=== PATIENT | male | born 2000 | race Caucasian/White ===

== ENCOUNTER 2022-09-30 17:26 | Emergency (ER) | payer OTHER, SELFPAY ==
[2022-09-30 17:27] VITALS: BP 139/87; PULSE 86; RESP 17; TEMP 36.8; O2SAT 100; BMI 27.0
--- NOTE | 2022-09-30 17:47 | CT_ITS ---
STUDY: CT ABDOMEN AND PELVIS WITH CONTRAST REASON FOR EXAM: Male, 21 years old. abdominal pain -- IV PO Contrast RADIATION DOSAGE (If Supplied By Facility): CTDIvol = ( 16.66 ) mGy, DLP = ( 754.24 ) mGycm TECHNIQUE: Transaxial images were obtained from the dome of the diaphragm to the symphysis pubis without oral contrast. Oral and amp; IV and amp; 100mL Isovue-300 was administered. Sagittal and coronal images were reconstructed. Individualized dose optimization techniques were used for this CT. COMPARISON: None. FINDINGS: The visualized lung bases are unremarkable. The visualized portions of the heart are within normal limits. Normal liver. Normal gallbladder and extrahepatic biliary system. Normal spleen. Normal pancreas. Normal bilateral adrenal glands. Normal right kidney. Normal left kidney. Normal visualized stomach. Normal small intestine. Normal colon. The appendix is visualized and appears normal. Normal abdominal aorta. Normal inferior vena cava. Normal retroperitoneum. Normal urinary bladder. Normal abdominal wall. Normal osseous structures. CT/Abdomen/Pelvis WITH Contrast IMPRESSION: Normal enhanced CT of the abdomen and pelvis. Electronically Signed: Armond Miranda MD at 20:05 EDT ,
[2022-09-30] MEDS: Ondansetron 4 MG/2 ML Vial IV ×2 (17:49→22:14)
--- NOTE | 2022-09-30 17:49 | EDS_ITS ---
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 Today at noon he ate chicken and had sudden onset periumbilical pain, 2 episodes of vomiting, and a few episodes of loose stools. The pain comes in waves. No history of similar symptoms. He takes no medications, does not smoke, states he occasionally drinks alcohol and only had a small amount earlier this week. PFSH <VICKI Cornelius - Last Filed: 09/30/22 21:28> PFSH Medical History no medical history Home Medications acetaminophen 500 mg tablet (Tylenol Extra Strength) 1,000 mg PO Q6H PRN fever or pain 5 days #40 tabs 09/30/22 [Rx Last Taken Unknown] ondansetron 4 mg disintegrating tablet 4 mg PO Q8H PRN PRN Nausea #10 tabs 09/30/22 [Rx Last Taken Unknown] Allergy/AdvReac Type Severity Reaction Status Date / Time Penicillins [PCN] Allergy Rash Verified 12/25/16 07:53 Surgical History no surgical history Social History Smoking Status: Never smoker ROS <VICKI Cornelius - Last Filed: 09/30/22 21:28> ROS ED ROS Narrative Constitutional: Negative for fever, chills, malaise. CVS: Negative for chest pain. Respiratory: Negative for shortness of breath. GI: Positive for abdominal pain, nausea, vomiting, diarrhea. Negative for melena, hematochezia. : Negative for dysuria. Neuro: Negative for headache. EXAM <VICKI Cornelius Last Filed: 09/30/22 21:28> Physical Exam Narrative Exam Narrative: CONST: Patient sitting in bed appears uncomfortable. EYES: Normal inspection. NECK: Normal inspection. RESP: No respiratory distress, CTAB. CVS: Regular rate and rhythm, no murmur, no gallop. ABD: Soft with periumbilical tenderness, no guarding or rebound, nondistended, no hepatosplenomegaly. SKIN: Color normal, no rash, warm, dry, intact. EXTREMITIES: Normal appearance, no pedal edema. NEURO: Oriented x4. PSYCH: Normal affect. Const Vital Signs: 09/30/22 17:27 09/30/22 19:27 09/30/22 21:11 Temperature 98.2 F Temperature Source Temporal Pulse Rate 86 76 62 Respiratory Rate 17 16 18 Blood Pressure 139/87 H 118/73 125/60 H Blood Pressure Mean 104 88 81 Pulse Ox 100 99 98 Oxygen Delivery Method Room Air Room Air Room Air 09/30/22 22:11 09/30/22 22:19 Temperature Temperature Source Pulse Rate 59 L 78 Respiratory Rate 16 18 Blood Pressure 138/77 H 142/76 H Blood Pressure Mean 97 Pulse Ox 97 100 Oxygen Delivery Method Room Air <Dr. Henri Ruvalcaba DO - Last Filed: 09/30/22 22:40> Physical Exam Const Vital Signs: 09/30/22 17:27 09/30/22 19:27 09/30/22 21:11 Temperature 98.2 F Temperature Source Temporal Pulse Rate 86 76 62 Respiratory Rate 17 16 18 Blood Pressure 139/87 H 118/73 125/60 H Blood Pressure Mean 104 88 81 Pulse Ox 100 99 98 Oxygen Delivery Method Room Air Room Air Room Air 09/30/22 22:11 09/30/22 22:19 Temperature Temperature Source Pulse Rate 59 L 78 Respiratory Rate 16 18 Blood Pressure 138/77 H 142/76 H Blood Pressure Mean 97 Pulse Ox 97 100 Oxygen Delivery Method Room Air [facility] <VICKI Cornelius - Last Filed: 09/30/22 21:28> [facility] Narrative Medical decision making narrative: History gathered from: Patient and significant other Patient having periumbilical abdominal pain, vomiting, diarrhea. He appears uncomfortable but nontoxic. Afebrile with normal vital signs. Exam remarkable for periumbilical tenderness but no guarding or rebound. I am concerned that early appendicitis needs ruled out. Labs and CT with p.o. and IV contrast will be obtained. CBC shows normal white count at 9.8. BMP only remarkable for mild hypokalemia at 3.1. Glucose 119 with normal anion gap. Lipase 23. CT shows no acute findings and normal visualized appendix. Patient was reassessed and although he does feel better he still has pain with palpation of the periumbilical and right lower quadrant area. I consulted general surgery to evaluate for appendicitis. Dr. Canales evaluated the patient in the ER and does not think this is appendicitis. Patient will be discharged home with Tylenol and Zofran but was told to return for any new or worsening symptoms. We thoroughly discussed it is possible he has early appendicitis. Patient was discharged in stable condition. Differential: Viral gastroenteritis, cholecystitis, appendicitis, diverticulitis Lab Data Attestation: I reviewed the patient's lab results. Labs: Laboratory Results - last 24 hr 09/30/22 09/30/22 09/30/22 18:40 18:40 20:56 WBC 9.8 RBC 5.56 Hgb 16.4 Hct 48.3 MCV 86.9 MCH 29.5 MCHC 34.0 RDW Std Deviation 37.8 RDW Coeff of Rachna 11.9 Plt Count 215 MPV 9.1 Immature Gran % (Auto) 0.300 Neut % (Auto) 84.4 H Lymph % (Auto) 12.0 L [place] % (Auto) 2.9 Eos % (Auto) 0.2 Baso % (Auto) 0.2 Absolute Neuts (auto) 8.2 H Absolute Lymphs (auto) 1.17 Nucleated RBC % 0 Sodium 139 Potassium 3.1 L Chloride 108 H Carbon Dioxide 23.0 Anion Gap 8 BUN 18 Creatinine 1.12 Estim Creat Clear Calc 114.51 Est GFR (MDRD) Af Amer 106 Est GFR (MDRD) Non-Af 87 BUN/Creatinine Ratio 16.1 Glucose 119 H Calcium 9.6 Total Bilirubin 0.40 AST 12 L ALT 21 Alkaline Phosphatase 87 Total Protein 7.6 Albumin 4.2 Globulin 3.4 Albumin/Globulin Ratio 1.2 Lipase 23 Urine Color Yellow Urine Clarity Sl. Cloudy Urine pH 7.0 Ur Specific [place] 1.010 Urine Protein 15 H Urine Glucose (UA) Normal Urine Ketones 150 A* Urine Occult Blood Negative Urine Nitrite Negative Urine Bilirubin Negative Urine Urobilinogen Normal Ur Leukocyte Esterase Negative Urine RBC 0 SEEN Urine WBC 0 SEEN Ur Squamous Epith Cells 0 SEEN Amorphous Sediment 2+ Urine Bacteria 0 SEEN Urine Mucus 0 SEEN Radiography Diagnostic Testing: Clinical Impression(s) from Imaging Studies Abdomen/Pelvis CT 09/30/22 17:47 IMPRESSION: Normal enhanced CT of the abdomen and pelvis. Electronically Signed: Armond Miranda MD at 20:05 EDT , <Dr. Henri Ruvalcaba, DO - Last Filed: 09/30/22 22:40> [facility] Narrative Medical decision making narrative: History gathered from: Patient and significant other Patient having periumbilical abdominal pain, vomiting, diarrhea. He appears uncomfortable but nontoxic. Afebrile with normal vital signs. Exam remarkable for periumbilical tenderness but no guarding or rebound. I am concerned that early appendicitis needs ruled out. Labs and CT with p.o. and IV contrast will be obtained. CBC shows normal white count at 9.8. BMP only remarkable for mild hypokalemia at 3.1. Glucose 119 with normal anion gap. Lipase 23. CT shows no acute findings and normal visualized appendix. Patient was reassessed and although he does feel better he still has pain with palpation of the periumbilical and right lower quadrant area. I consulted general surgery to evaluate for appendicitis. Dr. Canales evaluated the patient in the ER and does not think this is appendicitis. Patient will be discharged home with Tylenol and Zofran but was told to return for any new or worsening symptoms. We thoroughly discussed it is possible he has early appendicitis. Patient was discharged in stable condition. Differential: Viral gastroenteritis, cholecystitis, appendicitis, diverticulitis Attending note: Patient seen and evaluated with specialist managers. I perform my own [id number] evaluation. I agree with the plan of work-up. Abdominal pain diarrhea since yesterday symptoms were better this morning, however returned. Started mid abdomen. Denies fevers. Denies abdominal surgeries. Exam alert not toxic however uncomfortable. Tender mid abdomen and slightly right lower quadrant. Patient treated for his pain symptoms fluids labs all normal except for some 0.1. Urine with negative. A contrast CT scan reviewed and read by radiology with a normal appendix with no other acute findings. Reevaluated by specialist managers still had discomfort, discussed with on-call surgeon Dr. Canales who evaluated the patient in the ED does not feel his acute appendicitis at this time. He recommended additional fluids for the patient. Patient given prescription for Zofran to use Tylenol with strict return precautions. Lab Data Labs: Laboratory Results - last 24 hr 09/30/22 09/30/22 09/30/22 18:40 18:40 20:56 WBC 9.8 RBC 5.56 Hgb 16.4 Hct 48.3 MCV 86.9 MCH 29.5 MCHC 34.0 RDW Std Deviation 37.8 RDW Coeff of Rachna 11.9 Plt Count 215 MPV 9.1 Immature Gran % (Auto) 0.300 Neut % (Auto) 84.4 H Lymph % (Auto) 12.0 L [place] % (Auto) 2.9 Eos % (Auto) 0.2 Baso % (Auto) 0.2 Absolute Neuts (auto) 8.2 H Absolute Lymphs (auto) 1.17 Nucleated RBC % 0 Sodium 139 Potassium 3.1 L Chloride 108 H Carbon Dioxide 23.0 Anion Gap 8 BUN 18 Creatinine 1.12 Estim Creat Clear Calc 114.51 Est GFR (MDRD) Af Amer 106 Est GFR (MDRD) Non-Af 87 BUN/Creatinine Ratio 16.1 Glucose 119 H Calcium 9.6 Total Bilirubin 0.40 AST 12 L ALT 21 Alkaline Phosphatase 87 Total Protein 7.6 Albumin 4.2 Globulin 3.4 Albumin/Globulin Ratio 1.2 Lipase 23 Urine Color Yellow Urine Clarity Sl. Cloudy Urine pH 7.0 Ur Specific [place] 1.010 Urine Protein 15 H Urine Glucose (UA) Normal Urine Ketones 150 A* Urine Occult Blood Negative Urine Nitrite Negative Urine Bilirubin Negative Urine Urobilinogen Normal Ur Leukocyte Esterase Negative Urine RBC 0 SEEN Urine WBC 0 SEEN Ur Squamous Epith Cells 0 SEEN Amorphous Sediment 2+ Urine Bacteria 0 SEEN Urine Mucus 0 SEEN Radiography Diagnostic Testing: Clinical Impression(s) from Imaging Studies Abdomen/Pelvis CT 09/30/22 17:47 IMPRESSION: Normal enhanced CT of the abdomen and pelvis. Electronically Signed: Armond Miranda MD at 20:05 EDT Reading Location ID and State: [facility] / [place] , Service support , Discharge Plan Triage Chief Complaint: Abd Pain ED Midlevel Provider: Viktoria Wellington ED Provider: Henri Ruvalcaba Dx/Rx/DC Orders Clinical Impression: Abdominal pain, Acute hypokalemia Instructions: Abdominal Pain Prescriptions: New ondansetron 4 mg tablet,disintegrating 4 mg PO Q8H PRN PRN (Reason: Nausea) Qty: 10 0RF acetaminophen [Tylenol Extra Strength] 500 mg tablet 1,000 mg PO Q6H PRN (Reason: fever or pain) 5 Days Qty: 40 0RF Primary Care Provider: Pravin Sarmiento Referrals: Pravin Sarmiento MD [Primary Care Provider] - Activity Restrictions/Additional Instructions: Your blood work and CAT scan look normal today. If you worsen come back to the emergency room. Is possible that he could have early appendicitis so it is very important to come back if you feel increased pain or worsening symptoms. Disposition Disposition: Home, Self Care Discharge Date/Time: 09/30/22 22:24
[2022-09-30] MEDS: Morphine 4 MG/ML Syringe IV ×2 (17:50→18:35)
[2022-09-30] MEDS: 0.9% Normal Saline 1,000 ML 999 ML IV ×2 (17:50→21:10)
[2022-09-30 18:48] LABS: Absolute Lymphocyte Count 1.17 X10^3/uL (0.83-4.51); Absolute Neutrophil Count 8.2 X10^3/uL (2.0-7.7); Basophil# 0.02 X10^3/uL; Basophil% 0.2 % (0-1); Eosinophil# 0.02 X10^3/uL; Eosinophils% 0.2 % (0-5); Hematocrit 48.3 % (40-54); Hemoglobin 16.4 g/dL (13.0-16.5); Lymphocyte # 1.17 X10^3/ul (0.83-4.51); Mean Corpuscular Hgb 29.5 pg (27.0-32.0); Mean Corpuscular Volume 86.9 fL (80-94); Mean Platelet Vol. 9.1 fl (6.2-12.0); Monocyte# 0.28 X10^3/uL; Monocyte% 2.9 % (0-10); NRBC Flagged by Analyzer 0 % (0-5); Neutrophil # 8.23 X10^3/uL (2.7-7.7); Neutrophil % 84.4 % (47-70); Platelet Count 215 K/mm3 (150-450); RBC Distribution Width CV 11.9 % (11.6-14.6); RBC Distribution Width SD 37.8 fl (35.1-43.9); Red Blood Count 5.56 M/mm3 (4.6-6.2); White Blood Count 9.8 K/mm3 (4.4-11.0)
[2022-09-30 19:17] LABS: ALB/GLOB Ratio 1.2 RATIO (0.9-2.4); AST(SGOT) 12 U/L (15-37); Alanine Aminotransfer ALT/SGPT 21 U/L (16-61); Albumin, Serum 4.2 g/dL (3.2-5.0); Alkaline Phosphatase 87 U/L (45-117); Anion Gap 8 (5-15); BUN 18 mg/dL (7-18); BUN/Creat Ratio 16.1 RATIO (10-20); Calcium,Total 9.6 mg/dL (8.5-10.1); Chloride 108 mmol/L (98-107); Creatinine, Serum 1.12 mg/dL (0.70-1.30); EST Glomerular Filtration Rate 87 mL/min (>60); Est Glom Filt Rate - Afr Amer 106 mL/min (>60); Estimated Creatinine Clearance 114.51 ml/min; Globulin 3.4 g/dL (2.2-4.2); Glucose 119 mg/dL (74-106); Lipase 23 U/L (13-75); Potassium 3.1 mmol/L (3.5-5.1); Protein, Total 7.6 g/dL (6.4-8.2); Sodium Level 139 mmol/L (136-145)
[2022-09-30 19:27] VITALS: BP 118/73; PULSE 76; RESP 16; O2SAT 99
[2022-09-30] MEDS: Potassium Chloride Oral Tablet 20 MEQ 40 MEQ PO (20:53)
[2022-09-30 20:59] LABS: Bacteria 0 SEEN /hpf (None Seen); Mucous, Urine 0 SEEN /hpf (<or=2+); Red Blood Cells-Urine 0 SEEN /hpf (0-5); Squamous Epithelial Cells - UA 0 SEEN /hpf (0-5); White Blood Cells 0 SEEN /hpf (0-5)
[2022-09-30 21:01] LABS: Color, Urine Yellow (Yellow); Glucose, Dipstick Normal (Normal); Leukocyte Esterase-Dipstick Negative /ul (Negative); Nitrite-Dipstick Negative (Negative); Occult Blood-Urine Negative /ul (Negative); Protein-Dipstick 15 mg/dl (Negative); Urine Bilirubin Dipstick Negative (Negative); Urine Clarity Sl. Cloudy (Clear); Urine Urobilinogen Normal (Normal)
[2022-09-30 21:04] LABS: Ketone-Dipstick 150 mg/dl (Negative)
--- NOTE | 2022-09-30 21:07 | CON.PCM.SX_ITS ---
Assessment & Plan Assessment/Plan (1) Abdominal pain: PLAN: I do not believe his abdominal pain is appendix related I think he probably does have gastroenteritis viral more than likely related. He probably would benefit from more IV hydration. His urinalysis is not back yet and that will need to be checked prior to his being discharged. I have instructed him that if his pain or to come back or if it will localized into the right lower quadrant he should come back to the emergency department and get reevaluated. HPI Consult Data Date of Consult: 09/30/22 HPI Narrative HPI Narrative: DAVE BARLOW, is a 21-year-old [facility] male with no past medical history had abdominal pain and a few episodes of diarrhea yesterday.? Today at noon he ate chicken and had sudden onset periumbilical pain, 2 episodes of vomiting, and a few episodes of loose stools.? The pain comes in waves.? No history of similar symptoms.? He takes no medications, does not smoke, states he occasionally dri nks alcohol and only had a small amount earlier this week. In the emergency department he had a normal white count CT scan which was read as normal with visualization of the appendix no signs of inflammation of the intestines. He is still complaining of some centralized abdominal pain but feels slightly better. [facility] Medical History no medical history Home Medications No Known/Unobtainable [No Known Home Medications] 12/25/16 [History Last Taken Unknown] Allergy/AdvReac Type Severity Reaction Status Date / Time Penicillins [PCN] Allergy Rash Verified 12/25/16 07:53 Surgical History no surgical history Social History Smoking Status: Never smoker ROS Constitutional Constitutional: Denies chills or fever(s) Cardiovascular Cardiovascular: Denies chest pain at rest Respiratory/Chest Respiratory/Chest: Denies shortness of breath at rest Gastrointestinal Gastrointestinal: Reports abdominal pain, diarrhea, nausea and vomiting Genitourinary Genitourinary: Denies dysuria Physical Exam Const alert, oriented x3 and no apparent distress HEENT normocephalic and head/scalp atraumatic Eyes PERRL and EOMs intact bilaterally Resp clear to auscultation bilaterally GI soft to palpation GI Narrative: There is no rebound guarding or peritoneal signs identified. He has absolutely no tenderness in the right lower quadrant to deep palpation. Lab / Micro Data Result Diagrams: 09/30/22 18:40 09/30/22 18:40 Labs: Laboratory Results - last 24 hr 09/30/22 18:40: WBC 9.8, RBC 5.56, Hgb 16.4, Hct 48.3, MCV 86.9, MCH 29.5, MCHC 34.0, RDW Std Deviation 37.8, RDW Coeff of Rachna 11.9, Plt Count 215, MPV 9.1, Immature Gran % (Auto) 0.300, Neut % (Auto) 84.4 H, Lymph % (Auto) 12.0 L, [place] % (Auto) 2.9, Eos % (Auto) 0.2, Baso % (Auto) 0.2, Absolute Neuts (auto) 8.2 H, Absolute Lymphs (auto) 1.17, Nucleated RBC % 0 09/30/22 18:40: Sodium 139, Potassium 3.1 L, Chloride 108 H, Carbon Dioxide 23.0, Anion Gap 8, BUN 18, Creatinine 1.12, Estim Creat Clear Calc 114.51, Est GFR (MDRD) Af Amer 106, Est GFR (MDRD) Non-Af 87, BUN/Creatinine Ratio 16.1, Glucose 119 H, Calcium 9.6, Total Bilirubin 0.40, AST 12 L, ALT 21, Alkaline Phosphatase 87, Total Protein 7.6, Albumin 4.2, Globulin 3.4, Albumin/Globulin Ratio 1.2, Lipase 23 09/30/22 20:56: Urine Color Yellow, Urine Clarity Sl. Cloudy, Urine pH 7.0, Ur Specific [employer] 1.010, Urine Protein 15 H, Urine Glucose (UA) Normal, Urine Ketones 150 A*, Urine Occult Blood Negative, Urine Nitrite Negative, Urine Bilirubin Negative, Urine Urobilinogen Normal, Ur Leukocyte Esterase Negative Radiology Impression Abdomen/Pelvis CT 09/30/22 17:47 IMPRESSION: Normal enhanced CT of the abdomen and pelvis. Electronically Signed: Armond Miranda MD at 20:05 EDT ,
[2022-09-30 21:11] VITALS: BP 125/60; PULSE 62; RESP 18; O2SAT 98
[2022-09-30 21:26] LABS: Amorphous Sediment 2+
[2022-09-30 22:11] VITALS: BP 138/77; PULSE 59; RESP 16; O2SAT 97
[2022-09-30 22:19] VITALS: BP 142/76; PULSE 78; RESP 18; O2SAT 100
== END 2022-09-30 22:24 | disposition home or self-care (01) ==
PROVIDERS: Physician Assistant; Emergency Provider Emergency Medicine; PCP Pediatrics; Visit Provider Emergency Medicine
DX: R10.33 Periumbilical pain (principal); E87.6 Hypokalemia
CPT/HCPCS: 74177; 80053; 81001; 83690; 85025; 96374; 96375; 96376; 99284; J7030; Q9967; A4216; J2405

== ENCOUNTER 2022-10-02 05:29 | Emergency (ER) | payer OTHER, SELFPAY ==
[2022-10-02 05:30] VITALS: BP 141/87; PULSE 68; RESP 16; TEMP 37; O2SAT 97; BMI 26.4
[2022-10-02 06:29] LABS: Absolute Lymphocyte Count 1.06 X10^3/uL (0.83-4.51); Absolute Neutrophil Count 4.9 X10^3/uL (2.0-7.7); Basophil# 0.02 X10^3/uL; Basophil% 0.3 % (0-1); Eosinophil# 0.06 X10^3/uL; Hematocrit 47.3 % (40-54); Hemoglobin 16.1 g/dL (13.0-16.5); Lymphocyte # 1.06 X10^3/ul (0.83-4.51); Lymphocyte % 16.9 % (19-41); Mean Corpuscular Hgb 29.8 pg (27.0-32.0); Mean Corpuscular Volume 87.4 fL (80-94); Mean Platelet Vol. 9.4 fl (6.2-12.0); Monocyte# 0.24 X10^3/uL; Monocyte% 3.8 % (0-10); NRBC Flagged by Analyzer 0 % (0-5); Neutrophil # 4.86 X10^3/uL (2.7-7.7); Neutrophil % 77.7 % (47-70); POSITIVE COUNT YES; Platelet Count 191 K/mm3 (150-450); RBC Distribution Width SD 38.3 fl (35.1-43.9); Red Blood Count 5.41 M/mm3 (4.6-6.2); White Blood Count 6.3 K/mm3 (4.4-11.0)
[2022-10-02 06:34] LABS: Differential Indicated SCAN CRITERIA MET
[2022-10-02 06:44] LABS: ALB/GLOB Ratio 1.3 RATIO (0.9-2.4); AST(SGOT) 19 U/L (15-37); Alanine Aminotransfer ALT/SGPT 22 U/L (16-61); Albumin, Serum 4.4 g/dL (3.2-5.0); Alkaline Phosphatase 89 U/L (45-117); Anion Gap 6 (5-15); BUN 11 mg/dL (7-18); BUN/Creat Ratio 11.1 RATIO (10-20); Calcium,Total 9.5 mg/dL (8.5-10.1); Chloride 104 mmol/L (98-107); Creatinine, Serum 0.99 mg/dL (0.70-1.30); EST Glomerular Filtration Rate 100 mL/min (>60); Est Glom Filt Rate - Afr Amer 122 mL/min (>60); Estimated Creatinine Clearance 129.55 ml/min; Globulin 3.3 g/dL (2.2-4.2); Glucose 117 mg/dL (74-106); Potassium 3.8 mmol/L (3.5-5.1); Protein, Total 7.7 g/dL (6.4-8.2); Sodium Level 135 mmol/L (136-145)
[2022-10-02 06:50] LABS: Red Blood Cells-Urine 0 SEEN /hpf (0-5); Squamous Epithelial Cells - UA 0 SEEN /hpf (0-5); White Blood Cells 0 SEEN /hpf (0-5)
[2022-10-02 06:54] LABS: Color, Urine Yellow (Yellow); Glucose, Dipstick Normal (Normal); Ketone-Dipstick 5 mg/dl (Negative); Leukocyte Esterase-Dipstick Negative /ul (Negative); Nitrite-Dipstick Negative (Negative); Occult Blood-Urine Negative /ul (Negative); Protein-Dipstick 15 mg/dl (Negative); Specific Gravity, Urine 1.015 (1.002-1.030); Urine Bilirubin Dipstick Negative (Negative); Urine Clarity Clear (Clear); Urine Urobilinogen 1 mg/dl (Normal)
[2022-10-02 07:02] LABS: Amorphous Sediment 1+; Bacteria RARE /hpf (None Seen); Mucous, Urine 1+ /hpf (<or=2+)
[2022-10-02] MEDS: Mag Hydrox/Al Hydrox/Simeth 30 ML UDC PO (07:22)
[2022-10-02] MEDS: Famotidine 200 MG/20 ML MDV 20 MG in 0.9% Normal Saline (Pres. free 8 ML 300 MG IV (07:26)
--- NOTE | 2022-10-02 08:10 | EDS_ITS ---
HPI History of Present Illness Chief Complaint: Abd Pain Narrative Narrative: Patient presents with epigastric pain, this been ongoing for a few days she was seen 2 days ago and had an unremarkable work-up including a normal CT. He was given Tylenol but last night his pain got worse. Pain does not radiate to his back he has no lower abdominal pain he has no urinary symptoms. No chest pain or shortness of breath. PFSH PFSH Medical History no medical history Home Medications acetaminophen 500 mg tablet (Tylenol Extra Strength) 1,000 mg PO Q6H PRN fever or pain 5 days #40 tabs 09/30/22 [Rx Last Taken Unknown] ondansetron 4 mg disintegrating tablet 4 mg PO Q8H PRN PRN Nausea #10 tabs 09/30/22 [Rx Last Taken Unknown] omeprazole 40 mg capsule,delayed release 40 mg PO DAILY 30 days #30 caps 10/02/22 [Rx Last Taken Unknown] sucralfate 1 gram tablet (Carafate) 1 g PO BID #20 tabs 10/02/22 [Rx Last Taken Unknown] Allergy/AdvReac Type Severity Reaction Status Date / Time Penicillins [PCN] Allergy Rash Verified 10/02/22 05:34 Surgical History no surgical history Social History Smoking Status: Never smoker ROS ROS ED ROS Narrative Past medical history: Reviewed Medications: Reviewed Social history: Noncontributory Review of systems: All systems negative except as indicated General: No fever Neck: No neck pain Cardiovascular: No chest pain Respiratory: No shortness of breath or cough Gastrointestinal: As in HPI Genitourinary: No dysuria Musculoskeletal: Denies myalgias no difficulty with ambulation Skin: No rash EXAM Physical Exam Narrative Exam Narrative: Physical exam General: Patient appears relatively comfortable. Head: Normocephalic, Atraumatic Eyes: Conjunctiva not pale ENT: Moist mucous membranes Neck: Supple, Nontender, No lymphadenopathy Cardiovascular: Regular rate, Regular rhythm Respiratory: No distress, CTA bilaterally Abdomen: Soft, he has epigastric tenderness, no right upper quadrant pain neg ative Walters's. No lower abdominal pain including no pain at McBurney's. No CVA tenderness. Back: Nontender, Normal Inspection. Negative for: CVA tenderness Extremities: Nontender, No edema Skin: Normal color, No rash Const Vital Signs: 10/02/22 05:30 Temperature 98.6 F Temperature Source Temporal Pulse Rate 68 Respiratory Rate 16 Blood Pressure 141/87 H Blood Pressure Mean 105 Pulse Ox 97 Oxygen Delivery Method Room Air MDM MDM MDM Narrative Medical decision making narrative: Patient has epigastric pain, I thought about pancreatitis, however he had a normal lipase last time I thought about gallbladder disease however the ultrasound does not show any gallstones and he does not have any increased LFTs or any increase in WBCs, I thought about gastric ulcer or gastritis, I gave him a GI cocktail and Pepcid IV and his pain was almost gone when I reevaluated him he feels much better. I believe this is likely the cause of his symptomatology. He will be given Carafate and a PPI for home. I thought about an ultrasound or CAT scan however the patient had a recent CAT scan which was normal and his pain improved with antacids therefore I do not believe we need to do that. I talked to his who is in the room about the history. CBC CMP were interpreted by me is unremarkable, I thought about doing a lipase but he had 1 done few days ago and it was unremarkable. Lab Data Labs: Laboratory Results - last 24 hr 10/02/22 10/02/22 10/02/22 06:20 06:20 06:46 WBC 6.3 RBC 5.41 Hgb 16.1 Hct 47.3 MCV 87.4 MCH 29.8 MCHC 34.0 RDW Std Deviation 38.3 RDW Coeff of Rachna 12.0 Plt Count 191 MPV 9.4 Immature Gran % (Auto) 0.300 Neut % (Auto) 77.7 H Lymph % (Auto) 16.9 L [place] % (Auto) 3.8 Eos % (Auto) 1.0 Baso % (Auto) 0.3 Absolute Neuts (auto) 4.9 Absolute Lymphs (auto) 1.06 Nucleated RBC % 0 Sodium 135 L Potassium 3.8 Chloride 104 Carbon Dioxide 25.0 Anion Gap 6 BUN 11 Creatinine 0.99 Estim Creat Clear Calc 129.55 Est GFR (MDRD) Af Amer 122 Est GFR (MDRD) Non-Af 100 BUN/Creatinine Ratio 11.1 Glucose 117 H Calcium 9.5 Total Bilirubin 0.50 AST 19 ALT 22 Alkaline Phosphatase 89 Total Protein 7.7 Albumin 4.4 Globulin 3.3 Albumin/Globulin Ratio 1.3 Urine Color Yellow Urine Clarity Clear Urine pH 7.0 Ur Specific [place] 1.015 Urine Protein 15 H Urine Glucose (UA) Normal Urine Ketones 5 H Urine Occult Blood Negative Urine Nitrite Negative Urine Bilirubin Negative Urine Urobilinogen 1 H Ur Leukocyte Esterase Negative Urine RBC 0 SEEN Urine WBC 0 SEEN Ur Squamous Epith Cells 0 SEEN Amorphous Sediment 1+ Urine Bacteria RARE Urine Mucus 1+ Discharge Plan Triage Chief Complaint: Abd Pain ED Provider: Rm Bowser Dx/Rx/DC Orders Clinical Impression: Acute epigastric pain, Gastritis Instructions: Treating Gastritis Prescriptions: New sucralfate [Carafate] 1 gram tablet 1 g PO BID Qty: 20 0RF omeprazole 40 mg capsule,delayed release(DR/EC) 40 mg PO DAILY 30 Days Qty: 30 0RF No Action ondansetron 4 mg tablet,disintegrating 4 mg PO Q8H PRN PRN (Reason: Nausea) Qty: 10 0RF acetaminophen [Tylenol Extra Strength] 500 mg tablet 1,000 mg PO Q6H PRN (Reason: fever or pain) 5 Days Qty: 40 0RF Primary Care Provider: Pravin Sarmiento Referrals: Pravin Sarmiento MD [Primary Care Provider] - 3-5 Days Disposition Disposition: Home, Self Care
== END 2022-10-02 08:51 | disposition home or self-care (01) ==
PROVIDERS: Emergency Provider Emergency Medicine; PCP Pediatrics; Visit Provider Emergency Medicine
DX: R10.13 Epigastric pain (principal); K29.70 Gastritis, unspecified, without bleeding
CPT/HCPCS: 80053; 81001; 85025; 99284; A4216; J3490